=== PATIENT | female | born 1945 | race Caucasian/White ===

== ENCOUNTER → 2016-09-03 | Outpatient (CLI) | payer OTHER ==
[~2016-09-03] VITALS: Ht 154.9 cm; Wt 90.7 kg
[~2016-09-03] MED LIST: ATORVASTATIN CA40 MG PO; OLMESARTAN-HCT1 EACH; OMEPRAZOLE40 MG PO
--- NOTE | ~2016-09-03 | P ---
[facility] [address] PROCEDURE REPORT Name: PAXTON SCALES Room #: REG [facility].#: [id number] Admission: 09/03/16 Attend Phys: Vargas Maravilla MD Discharge: Date of : 49 Report #: [id number] THIS REPORT FOR: //name// CC: Vargas Velasquez MD DATE OF SERVICE: 09/03/2016 BRIEF HISTORY: The patient is a 71-year-old woman for average risk screening colonoscopy. POSTOPERATIVE DIAGNOSES: 1. Diminutive polyp, cecum. 2. Pandiverticulosis coli. MEDICATIONS: Deep sedation with propofol per anesthesia. SPECIMEN: Cecal polyp. ESTIMATED BLOOD LOSS: 3 mL. PROCEDURE: Colonoscopy to cecum and terminal ileum with biopsy. FINDINGS: Prior to propofol sedation, procedure of colonoscopy was discussed with the patient as well as potential risks and its complications. She indicates she understands and desires to proceed. DESCRIPTION OF PROCEDURE: With the patient in left lateral decubitus position, digital examination was completed which revealed no abnormalities. Subsequently, the [employer] video colonoscope was introduced into the rectum, advanced under direct vision to the cecum. Done with minimal difficulty. The cecum was identified by the ileocecal valve and the appendiceal orifice. I was able to visualize the distal segment of terminal ileum, which was inspected and noted to be unremarkable. At that point, the scope was slowly withdrawn and careful circumferential views obtained. As we withdrew the scope, the prep was noted to be excellent. The mucosa was within normal limits, normal vascular pattern, normal light reflex. As we withdrew the scope, no additional polypoid lesions were seen. The colonic mucosa throughout the remainder of the colon was completely normal. However, she was noted to have pandiverticulosis. Diverticula were seen in the cecum. They were scattered throughout the colon, but most prominent in the sigmoid colon without endoscopic evidence of diverticulitis. The scope was withdrawn in the rectum. Upon retroflexion, no abnormalities were seen. Scope was withdrawn. The patient tolerated the procedure well. [address] [address] PROCEDURE REPORT Name: PAXTON SCALES Room #: REG [facility] Jorge.Reginald.#: [id number] Admission: 09/03/16 Attend Phys: Vargas Maravilla MD Discharge: Date of : 49 Report #: [id number] CONDITION OF THE PATIENT UPON DISCHARGE: Following procedure, the patient drowsy, aroused, conversant and will be discharged home when fully ambulatory. INSTRUCTIONS TO THE PATIENT AND FAMILY AT THE TIME OF DISCHARGE: One diminutive polyp was seen and removed. We will follow up on the path and make further recommendations. If this is an adenoma, she should return in 5 years; if it is hyperplastic, then 10 years would be indicated. Last colonoscopy was more than 10 years ago. Withdrawal time from the cecum was 12 minutes. <ELECTRONICALLY SIGNED> By: Vargas Maravilla MD 09/04/16 1714 1035 1216 Vargas Maravilla MD /nt
--- NOTE | ~2016-09-03 | S ---
[facility] [place] [address] SURGICAL PATH RPT PROCEDURE Name: PAXTON SCALES Room #: REG [facility] Vince.#: [id number] Admission: 09/03/16 Date of : 49 Discharge: Report #: [id number] Path Case #: [id number] PATHOLOGY REPORT COLLECTION DATE: 09/03/2016 RECEIVED DATE: 09/03/2016 SUBMITTING PHYS: Dr. Vargas Maravilla OTHER PHYS: Dr. Scar Velasquez SPECIMEN(S) RECEIVED: A.Bx cecal polyp * * * * * * * * * * * * FINAL DIAGNOSIS: Polyp, cecal polyp, endoscopic biopsy: - Hyperplastic polyp and a lymphoid aggregate. - Negative for dysplasia. (IUV:mgr; d/t: 09/04/16) PATHOLOGIST: Clemencia Cornell M.D. REPORT ELECTRONICALLY SIGNED BY: Clemencia Cornell M.D. DATE/TIME: 09/04/2016 16:26 * * * * * * * * * * * * GROSS PATHOLOGY: Received in formalin labeled "Paxton Scales and bx cecal polyp," are 2 segments of singh soft tissue measuring 0.6 x 0.2 x 0.2 cm in aggregate dimensions and measuring 0.2 and 0.4 cm in maximum dimension. The specimen is submitted entirely in cassette A1. (TTL; 09/03/2016) CLINICAL HISTORY: Pre-op diagnosis: Screening Post-op diagnosis: Cecal polyp, diverticulosis INITIAL CPT CODE(S): A; 26256 Professional services performed by [facility] at [facility] [address] [place] [address] Technical services performed by [facility] at [address] [place] [id number]. [facility] [address] [place] [address] SURGICAL PATH RPT PROCEDURE Name: PAXTON SCALES Room #: REG [facility] Joseph#: [id number] Admission: 09/03/16 Date of : 49 Discharge: Report #: [id number] Path Case #: [id number] [address] PHONE: [phone] DIRECTOR: Hiram Barber M.D. * * * END OF REPORT * * *
== END | disposition home or self-care (01) ==
LOC: GI 08:14
DX: Z12.11 Encounter for screening for malignant neoplasm of colon (principal); K63.5 Polyp of colon; K57.30 Diverticulosis of large intestine without perforation or abscess without bleeding; J45.909 Unspecified asthma, uncomplicated; I10 Essential (primary) hypertension; Z90.710 Acquired absence of both cervix and uterus; Z98.890 Other specified postprocedural states
CPT/HCPCS: 62110; 62900

== ENCOUNTER → 2018-03-18 | Outpatient (CLI) | payer OTHER | LOC: MRI 07:57 | DX: J32.0 Chronic maxillary sinusitis (principal); H70.91 Unspecified mastoiditis, right ear ==

== ENCOUNTER → 2018-06-22 | Outpatient (CLI) | payer OTHER | LOC: RAD 12:21 | DX: I51.7 Cardiomegaly (principal); J98.4 Other disorders of lung ==

== ENCOUNTER → 2019-01-04 | Outpatient (CLI) | payer OTHER | LOC: RAD 12:30 | DX: M47.812 Spondylosis without myelopathy or radiculopathy, cervical region (principal) ==

== ENCOUNTER → 2019-01-30 | Outpatient (CLI) | payer OTHER ==
[~2019-01-30] VITALS: Ht 157.5 cm; Wt 86.2 kg
[~2019-01-30] MED LIST changes: +BENICAR40 MG PO; +FLEXERIL PO; +LIPITOR40 MG PO; +SYNTHROID75 MCG PO; +ZANTAC 150MG T150 MG PO
--- NOTE | 2019-01-31 15:37 | P ---
[facility] [place] [address] PROCEDURE REPORT Name: PAXTON SCALES [facility] [id number] Admission: 01/30/19 ������������������ Attend Phys: Vargas Maravilla MD Discharge: ������������������ Date of : 49 Report #: [id number] THIS REPORT FOR: //name// CC: Vargas Arana DATE OF SERVICE: 01/30/2019 OUTPATIENT UPPER ENDOSCOPY BRIEF HISTORY: The patient is a 73-year-old woman known to me who has a longstanding history of reflux disease with increasing symptoms, on omeprazole and ranitidine daily. She also reports intermittent solid food dysphagia. It is noted she has been previously evaluated and did have H. pylori gastritis, which was treated in the past. PREOPERATIVE DIAGNOSIS: Worsening reflux symptoms on therapy. POSTOPERATIVE DIAGNOSES: 1. Grade C esophagitis. 2. Small sliding type hiatus hernia, 1-2 cm. 3. Patchy bulbar duodenitis. 4. Patchy duodenitis and second portion of duodenum. 5. Solid food dysphagia. MEDICATIONS: Deep sedation with propofol per anesthesia. SPECIMEN: Biopsies of gastritis. ESTIMATED BLOOD LOSS: 3 mL. PROCEDURE: EGD with biopsy, Bernal dilation. FINDINGS: Prior to propofol sedation, procedure of upper endoscopy discussed with the patient as well as potential risks and its complications. She indicates she understands and desires to proceed. DESCRIPTION OF PROCEDURE: With the patient in left lateral decubitus position, the Olympus video endoscope was inserted in the cervical esophagus under direct vision without difficulty. Examination of this organ through its entire length revealed normal esophageal mucosa down the squamocolumnar junction. Squamocolumnar junction was inspected. There were noted to be erosions along almost the entire squamocolumnar junction consistent with a grade C esophagitis. There were some extension of erosive changes in body of the esophagus, but there was no more than 5 mm. The esophagitis is primarily limited to the [facility] [address] [place] [address] PROCEDURE REPORT Name: PAXTON SCALES Room #: REG [facility].#: [id number] Admission: 01/30/19 ������������������ Attend Phys: Vargas Maravilla MD Discharge: ������������������ Date of : 49 Report #: [id number] squamocolumnar junction. There was no evidence of strictures or masses. Ulcers were not seen. The scope was advanced and she has a very small about 1-2 cm sliding-type hiatus hernia. The mucosa and hernia was unremarkable. The scope was advanced into the stomach, was examined on end view as well as retroflexed views. There was a diffuse gastritis with erythema in the antrum and body and a few scattered erosions in the antrum. No ulcers were seen. Upon retroflexion, a small hiatus hernia was seen. The pylorus was unremarkable. Examination duodenum bulb revealed patchy erythema, but no ulcers or erosions. The scope was advanced to the second portion of duodenum, there was noted to be streaky erythema, but not significant erosive or ulcerative changes. At that point, the scope was slowly withdrawn and careful circumferential views confirmed the above findings. The patient tolerated the procedure well. Following the procedure, she was dilated with passage of a 52-Slovenian Bernal dilator. There was no resistance. CONDITION OF THE PATIENT UPON DISCHARGE: Following procedure, the patient drowsy, arousable and conversant. She will be discharged to home when fully ambulatory. INSTRUCTIONS TO THE PATIENT AND FAMILY AT THE TIME OF DISCHARGE: She clearly has significant esophagitis. She is on 40 mg of omeprazole daily. We will change her to pantoprazole 40 mg twice daily. If needed, she may continue to use ranitidine, especially at night time. We will have her return to see me in followup in the office about 6 weeks or so to monitor progress. If her reflux disease cannot be controlled with medical management, antireflux procedure may be indicated. In addition, advised the patient on weight loss, which may be very valuable with regards to controlling her reflux disease. She will otherwise return to the care of Dr. Scar Velasquez and return to see me as needed. ��������������������������������������������� <ELECTRONICALLY SIGNED> ���������������������������������������� By: Vargas Maravilla MD ��������������������������������������������� 01/31/19 1537 1203 2359 Vargas Maravilla MD /nt
--- NOTE | 2019-02-01 19:06 | PATH ---
[facility] [address] [place] [address] PATHOLOGY RPT PROCEDURE Name: SCALESPAXTON Room #: REG [facility] Joseph#: [id number] ������������������ Admission: 01/30/19 ������������������ Date of : 49 Discharge: Report #: [id number] Path Case #: [id number] [facility] Accession Number: [id number] . 01 Material submitted: . stomach - BX STOMACH . 01 Clinical history: . Preop DX: GERD, dysphagia Postop DX: Dysphagia, esophagitis, gastritis, duodenitis, small hiatus hernia R/O H pylori . 02 Diagnosis: Gastric mucosa, stomach, endoscopic biopsy: - Mild reactive gastropathy. - Negative for intestinal metaplasia or atrophy. - Negative for Helicobacter pylori (properly controlled immunohistochemical stain performed) (IUV/db; 02/01/2019) LBQ 02/01/2019 1451 Local . 02 Electronically signed: . Clemencia Cornell MD, Pathologist NPI- [id number] . 01 Gross description: . Received in formalin labeled "Wilmar Paxton, BX stomach R/O H pylori," are four segments of singh-brown soft tissue measuring 0.8 x 0.7 x 0.3 cm in aggregate dimensions and ranging from 0.2 to 0.6 cm in maximum dimension. The specimen is submitted entirely in cassette A1. The smallest segment may not survive processing. ([facility]; 01/31/2019) XFL/XFL 01/31/2019 0856 Local . 02 Pathologist provided ICD-10: K31.9 . 02 CPT . 885922, U32016 Specimen Comment: A courtesy copy of this report has been sent to Specimen Comment: [phone], . Specimen Comment: Report sent to / DR OLIVEIRA Performed at: [address], [place], [place] [id number] MD Ned Barboza MD Phone: [phone] [facility] [place] [address] PATHOLOGY RPT PROCEDURE Name: PAXTON SCALES Room #: REG [facility] Joseph#: [id number] ������������������ Admission: 01/30/19 ������������������ Date of : 49 Discharge: Report #: [id number] Path Case #: [id number] Performed at: 02 [facility] [address] [id number] MD Clemencia Cornell MD Phone: [phone]
== END | disposition home or self-care (01) ==
LOC: GI 01-26 08:24
DX: R13.10 Dysphagia, unspecified (principal); K31.9 Disease of stomach and duodenum, unspecified; K21.0 Gastro-esophageal reflux disease with esophagitis; K44.9 Diaphragmatic hernia without obstruction or gangrene; K29.80 Duodenitis without bleeding; K25.9 Gastric ulcer, unspecified as acute or chronic, without hemorrhage or perforation; I10 Essential (primary) hypertension; E78.00 Pure hypercholesterolemia, unspecified; Z95.5 Presence of coronary angioplasty implant and graft; Z91.040 Latex allergy status; Z98.890 Other specified postprocedural states; Z90.49 Acquired absence of other specified parts of digestive tract; Z88.8 Allergy status to other drugs, medicaments and biological substances; Z79.899 Other long term (current) drug therapy
CPT/HCPCS: 62110; 62900

== ENCOUNTER → 2019-10-31 | Outpatient (CLI) | payer OTHER | LOC: SJCVC 09:51 | PROVIDERS: ATTEND Internal Medicine Cardiovascular Disease | DX: I45.10 Unspecified right bundle-branch block (principal); R94.31 Abnormal electrocardiogram [ECG] [EKG]; I10 Essential (primary) hypertension; E78.5 Hyperlipidemia, unspecified; E03.9 Hypothyroidism, unspecified; E78.00 Pure hypercholesterolemia, unspecified; J44.9 Chronic obstructive pulmonary disease, unspecified; K21.9 Gastro-esophageal reflux disease without esophagitis; E66.9 Obesity, unspecified; Z79.899 Other long term (current) drug therapy; Z82.49 Family history of ischemic heart disease and other diseases of the circulatory system ==

== ENCOUNTER → 2020-06-25 | Outpatient (CLI) | payer OTHER | LOC: SJCVC 11:06 | PROVIDERS: ATTEND Internal Medicine Cardiovascular Disease | DX: I45.10 Unspecified right bundle-branch block (principal); I44.4 Left anterior fascicular block; R94.31 Abnormal electrocardiogram [ECG] [EKG]; I10 Essential (primary) hypertension; E78.00 Pure hypercholesterolemia, unspecified; E03.9 Hypothyroidism, unspecified; R06.02 Shortness of breath; Z82.49 Family history of ischemic heart disease and other diseases of the circulatory system; Z79.899 Other long term (current) drug therapy; Z88.2 Allergy status to sulfonamides; Z88.8 Allergy status to other drugs, medicaments and biological substances; Z90.49 Acquired absence of other specified parts of digestive tract; Z90.710 Acquired absence of both cervix and uterus ==

== ENCOUNTER → 2020-07-08 | Outpatient (CLI) | payer OTHER | LOC: SJCVCIMAG 08:00 | PROVIDERS: ATTEND Internal Medicine Cardiovascular Disease | DX: I11.9 Hypertensive heart disease without heart failure (principal); R06.00 Dyspnea, unspecified; E78.5 Hyperlipidemia, unspecified ==

== ENCOUNTER → 2021-05-02 | Outpatient (CLI) | payer OTHER | LOC: BC 09:12 | PROVIDERS: ATTEND Nurse Practitioner | DX: Z12.31 Encounter for screening mammogram for malignant neoplasm of breast (principal) ==